=== PATIENT | male | born 1985 | race Caucasian/White ===

== ENCOUNTER 2019-07-27 11:39 | Emergency (ER) | payer BC, OTHER ==
--- NOTE | 2019-07-27 12:08 | ER Document Report ---
ED Medical Screen (RME) - General Chief Complaint: Chest Pain Stated Complaint: CHEST PAIN/SHORTNESS OF BREATH/HEADACHE/ARM ARI Time Seen by Provider: 07/27/19 12:04 Primary Care Provider: MARTHA SCHULTZ MD [Primary Care Provider] - Follow up as needed Notes: Patient is a 33-year-old male presents to the emergency department with a chief complaint of chest pain. Also has complaints of shortness of breath. His pain is radiating down his left arm. S chest pain started 6 days ago. Patient is an everyday smoker. He also states that he has a headache. He states that his blood pressure has been high. Exam: S1, S2. I have greeted and performed a rapid initial assessment of this patient. A comprehensive ED assessment and evaluation of the patient, analysis of test results and completion of medical decision making process will be conducted by an additional ED providers. TRAVEL OUTSIDE OF THE [place] IN LAST 30 DAYS: No - Related Data Allergies/Adverse Reactions: Sulfa (Sulfonamide Antibiotics) Allergy (Intermediate, Verified 07/27/19 12:04) throat itching Past Medical History - Social History Chew tobacco use (# tins/day): No Frequency of alcohol use: Rare Drug Abuse: None Doctor's Discharge - Discharge Referrals: MARTHA SCHULTZ MD [Primary Care Provider] - Follow up as needed
[2019-07-27 12:44] LABS: ABSOLUTE BASOPHILS # (AUTO) 0.1 10^3/uL (0.0-0.2); ABSOLUTE EOSINOPHILS # (AUTO) 0.3 10^3/uL (0.0-0.6); ABSOLUTE MONOCYTES (AUTO) 0.8 10^3/uL (0.1-1.4); ABSOLUTE NEUT (AUTO) 6.7 10^3/uL (1.7-8.2); BASOPHILS % (AUTO) 0.9 % (0-2); EOSINOPHILS % (AUTO) 3.1 % (0-6); HEMATOCRIT 47.3 % (37.9-51.0); HEMOGLOBIN 16.6 g/dL (13.5-17.0); LYMPHOCYTES % (AUTO) 27.6 % (13-45); MEAN CORPUSCULAR HEMOGLOBIN 31.1 pg (27.0-33.4); MEAN CORPUSCULAR HGB CONC 35.1 g/dL (32.0-36.0); MEAN CORPUSCULAR VOLUME 89 fl (80-97); PLATELET COUNT 187 10^3/uL (150-450); RED BLOOD COUNT 5.35 10^6/uL (4.35-5.55); RED CELL DISTRIBUTION WIDTH 12.9 % (11.5-14.0); SEGMENTED NEUTROPHILS % (AUTO) 61.4 % (42-78); TOTAL CELLS COUNTED % (AUTO) 100 %; WHITE BLOOD COUNT 10.8 10^3/uL (4.0-10.5)
--- NOTE | 2019-07-27 12:58 | RADIOLOGY REPORT (SQ) ---
EXAM DESCRIPTION: CHEST SINGLE VIEW COMPLETED DATE/TIME: 07/27/2019 12:50 pm REASON FOR STUDY: chest pain COMPARISON: None. EXAM PARAMETERS: NUMBER OF VIEWS: One view. TECHNIQUE: Single frontal radiographic view of the chest acquired. RADIATION DOSE: NA LIMITATIONS: None. FINDINGS: LUNGS AND PLEURA: No opacities, masses or pneumothorax. No pleural effusion. MEDIASTINUM AND HILAR STRUCTURES: No masses. Contour normal. HEART AND VASCULAR STRUCTURES: Heart normal in size. Normal vasculature. BONES: No acute findings. HARDWARE: None in the chest. OTHER: No other significant finding. IMPRESSION: NO ACUTE RADIOGRAPHIC FINDING IN THE CHEST. TECHNICAL DOCUMENTATION: JOB ID: [id number] [employer]- All Rights Reserved Reading location - IP/workstation name: [email or web address]
[2019-07-27 13:10] LABS: ALBUMIN 4.5 g/dL (3.5-5.0); ALKALINE PHOSPHATASE 61 U/L (38-126); ANION GAP 10 (5-19); ASPARTATE AMINO TRANSFERASE 32 U/L (17-59); BILIRUBIN,DIRECT 0.1 mg/dL (0.0-0.4); BILIRUBIN,TOTAL 0.8 mg/dL (0.2-1.3); BLOOD UREA NITROGEN 11 mg/dL (7-20); CALCIUM 9.4 mg/dL (8.4-10.2); CARBON DIOXIDE 27 mmol/L (22-30); CHLORIDE 105 mmol/L (98-107); CREATINE KINASE 130 U/L (55-170); GLUCOSE 116 mg/dL (75-110); TOTAL PROTEIN 8.3 g/dL (6.3-8.2)
[2019-07-27 13:20] LABS: TROPONIN I < 0.012 ng/mL
--- NOTE | 2019-07-27 15:45 | ER Document Report ---
ED General - General Chief Complaint: Chest Pain Stated Complaint: CHEST PAIN/SHORTNESS OF BREATH/HEADACHE/ARM ARI Time Seen by Provider: 07/27/19 12:04 Primary Care Provider: MARTHA SCHULTZ MD [COMMUNITY BASED STAFF] - Follow up as needed TRAVEL OUTSIDE OF THE [place] IN LAST 30 DAYS: No - HPI Notes: Patient is a 33-year-old male who presents emergency department for evaluation of chest pain. Substernal, with occasional radiation into the left shoulder, back, left arm. He states sometimes his left hand goes numb. It is never brought about by exertion. It is always brought about by stress. Patient has a history of PTSD, depression, anxiety. He will not tell me exactly what it is that is been stressful to him lately, but he alludes to something going on more acutely. He denies any suicidal or homicidal ideation. No visual or auditory hallucinations. He denies any associated shortness of breath, nausea, diaphoresis, near syncope. - Related Data Allergies/Adverse Reactions: Sulfa (Sulfonamide Antibiotics) Allergy (Intermediate, Verified 07/27/19 12:04) throat itching Past Medical History - General Information source: Patient - Social History Smoking Status: Current Every Day Smoker Chew tobacco use (# tins/day): No Frequency of alcohol use: Rare Drug Abuse: None Family History: CAD Patient has suicidal ideation: No Patient has homicidal ideation: No - Medical History Notes: G6PD deficiency Musculoskeletal Medical History: Reports Hx Musculoskeletal Trauma Psychiatric Medical History: Reports: Hx Depression, Hx Post Traumatic Stress Disorder Review of Systems - Review of Systems Constitutional: No symptoms reported EENT: No symptoms reported Cardiovascular: See HPI Respiratory: No symptoms reported Gastrointestinal: No symptoms reported Genitourinary: No symptoms reported Musculoskeletal: No symptoms reported Skin: No symptoms reported Neurological/Psychological: No symptoms reported Physical Exam - Vital signs Vitals: Pulse Ox 99 07/27/19 12:10 - Notes Notes: This is a very pleasant 33-year-old male who appears his stated age. He is anxious in appearance, cooperative with examiner. Vital signs reviewed, please refer to chart. Head is normocephalic, atraumatic. Pupils equal round, reactive to light. Neck is supple without meningismus. Heart is regular rate and rhythm. Lungs are clear to auscultation bilaterally. Abdomen is soft, nontender, normoactive bowel sounds throughout. Extremities without cyanosis, clubbing. Posterior calves are nontender. Peripheral pulses are equal. Skin is warm and dry. Patient is awake, alert, neurological exam is nonfocal. Course - Re-evaluation Re-evalutation: 07/27/19 15:42 Presents emergency department for evaluation. He is complaining of chest pain. He is told that he should quit smoking. He is encouraged strongly to follow-up with his primary care provider at the [facility], make sure he is addressing all of his risk factors for coronary artery disease. Today, he describes pain that is brought about by stress. It is not back about by exertion. His pain is been ongoing intermittently for 6 weeks, sometimes hours at a time. He states that this point it had been continuous for nearly a day. Given this information, he has effectively ruled out for acute coronary syndrome. I explained to him this is likely anxiety, will then send him home with some Vistaril. I strongly encouraged him to talk to primary care, discussed the possibility of Cymbalta. This medication is indicated for chronic pain, for which he has from his traumas and TBI. It might also help him with his depression and anxiety. He is amenable to this plan. Otherwise, I encouraged him to go back to counseling, return to the ED with worsening or new concerning symptoms of any sort. - Vital Signs Vital signs: Temp Pulse Resp BP Pulse Ox 13 145/97 H 97 07/27/19 13:01 07/27/19 13:01 07/27/19 13:01 - Laboratory Result Diagrams: 07/27/19 12:18 07/27/19 12:18 Laboratory results interpreted by me: 07/27/19 07/27/19 12:18 12:18 WBC 10.8 H Glucose 116 H Total Protein 8.3 H - Diagnostic Test Radiology reviewed: Reports reviewed - EKG Interpretation by Me Additional EKG results interpreted by me: 07/27/19 15:48 Sinus mechanism with a rate of 78 bpm. Normal axis and intervals, no acute ST changes concerning for ischemia or infarction. Discharge - Discharge Clinical Impression: Stress, Anxiety Chest pain Qualifiers: Chest pain type: unspecified Qualified Code(s): R07.9 - Chest pain, unspecified Condition: Stable Disposition: HOME, SELF-CARE Instructions: Anxiety ([facility]), Chest Pain of Unclear Cause ([facility]) Additional Instructions: Try Vistaril as needed for severe anxiety. Please watch as this can be sedating. You might want to discuss medication with your primary care provider a medication such as Cymbalta. This medication may help you with your pain, de pression, and anxiety issues. You may want to return to counseling as well. Further testing may be required to evaluate your heart further, discussed this with your primary care physician 2. Return to the emergency department with worsening or new concerning symptoms of any sort. Prescriptions: Hydroxyzine Pamoate [Vistaril 25 mg Capsule] 25 mg PO BID #14 capsule Referrals: MARTHA SCHULTZ MD [COMMUNITY BASED STAFF] - Follow up as needed
[2019-07-27 16:06] VITALS: BP 140/86
== END 2019-07-27 16:06 | disposition home or self-care (01) ==
LOC: ER 11:39
DX: F43.9 Reaction to severe stress, unspecified (principal); F41.9 Anxiety disorder, unspecified; R07.9 Chest pain, unspecified; R06.02 Shortness of breath; R51 Headache; F17.200 Nicotine dependence, unspecified, uncomplicated; Z88.2 Allergy status to sulfonamides
CPT/HCPCS: 36415; 71045; 80053; 82550; 82553; 83735; 84484; 85025; 99285

== ENCOUNTER 2019-07-29 13:01 | Emergency (ER) | payer OTHER ==
--- NOTE | 2019-07-29 13:16 | ER Document Report ---
ED Medical Screen (RME) - General Chief Complaint: Chest Pain Stated Complaint: CHEST PAIN Time Seen by Provider: 07/29/19 13:11 Primary Care Provider: NGUYỄN MCFARLANE [Primary Care Provider] - Follow up as needed TRAVEL OUTSIDE OF THE [place] IN LAST 30 DAYS: No - HPI Notes: 07/29/19 13:14 Patient is a 33-year-old male no significant past medical history presents complaining of midsternal chest pain and left scapular pain that is been present for the past week and a half. Patient states that times movement will make his pain worse. He started developing more pain to his back over the past couple days. He was evaluated here 2 days ago and had an unremarkable work-up at that time. No recent illness or fever. Denies any prolonged immobilization, distance travel, recent surgery/trauma, personal cancer history, hormone use, or previous DVT/PE. Denies LAMONTE, fever, neck pain, URI, n/v/d, Abd pain, dysuria, or rash. I have treated and performed a rapid initial assessment of this patient. A comprehensive ED assessment and evaluation of the patient, analysis of test results and completion of medical decision making process will be conducted by additional ED providers. PHYSICAL EXAMINATION: GENERAL: Well-appearing, well-nourished and in no acute distress. A&Ox4. Answers questions appropriately. LUNGS: Breath sounds clear to auscultation bilaterally and equal. No wheezes rales or rhonchi. HEART: Regular rate and rhythm without murmurs, rubs, gallops. - Related Data Allergies/Adverse Reactions: Sulfa (Sulfonamide Antibiotics) Allergy (Intermediate, Verified 07/27/19 12:04) throat itching Past Medical History Musculoskeltal Medical History: Reports Hx Musculoskeletal Trauma Psychiatric Medical History: Reports: Hx Depression, Hx Post Traumatic Stress Disorder Doctor's Discharge - Discharge [facility]errals: [facility] [Primary [facility]] - Follow up as needed
--- NOTE | 2019-07-29 14:03 | RADIOLOGY REPORT (SQ) ---
EXAM DESCRIPTION: CHEST 2 VIEWS COMPLETED DATE/TIME: 07/29/2019 1:46 pm REASON FOR STUDY: CP COMPARISON: 07/27/2019 EXAM PARAMETERS: NUMBER OF VIEWS: two views TECHNIQUE: Digital Frontal and Lateral radiographic views of the chest acquired. RADIATION DOSE: NA LIMITATIONS: none FINDINGS: LUNGS AND PLEURA: No opacities, masses or pneumothorax. No pleural effusion. MEDIASTINUM AND HILAR STRUCTURES: No masses or contour abnormalities. HEART AND VASCULAR STRUCTURES: Heart normal size. No evidence for failure. BONES: No acute findings. HARDWARE: None in the chest. OTHER: No other significant finding. IMPRESSION: NO ACUTE RADIOGRAPHIC FINDING IN THE CHEST. TECHNICAL DOCUMENTATION: JOB ID: [id number] [employer]- All Rights Reserved Reading location - IP/workstation name: [email or web address]
[2019-07-29 14:04] LABS: ABSOLUTE BASOPHILS # (AUTO) 0.1 10^3/uL (0.0-0.2); ABSOLUTE EOSINOPHILS # (AUTO) 0.2 10^3/uL (0.0-0.6); ABSOLUTE LYMPHOCYTES (AUTO) 3.5 10^3/uL (0.5-4.7); ABSOLUTE MONOCYTES (AUTO) 0.6 10^3/uL (0.1-1.4); ABSOLUTE NEUT (AUTO) 6.2 10^3/uL (1.7-8.2); BASOPHILS % (AUTO) 0.7 % (0-2); EOSINOPHILS % (AUTO) 1.9 % (0-6); HEMATOCRIT 47.4 % (37.9-51.0); HEMOGLOBIN 16.6 g/dL (13.5-17.0); LYMPHOCYTES % (AUTO) 33.2 % (13-45); MEAN CORPUSCULAR HEMOGLOBIN 31.1 pg (27.0-33.4); MEAN CORPUSCULAR VOLUME 89 fl (80-97); MONOCYTES % (AUTO) 5.9 % (3-13); PLATELET COUNT 192 10^3/uL (150-450); RED BLOOD COUNT 5.32 10^6/uL (4.35-5.55); RED CELL DISTRIBUTION WIDTH 12.9 % (11.5-14.0); SEGMENTED NEUTROPHILS % (AUTO) 58.3 % (42-78); TOTAL CELLS COUNTED % (AUTO) 100 %; WHITE BLOOD COUNT 10.7 10^3/uL (4.0-10.5)
[2019-07-29 14:15] LABS: ALBUMIN 4.7 g/dL (3.5-5.0); ALKALINE PHOSPHATASE 66 U/L (38-126); ANION GAP 9 (5-19); ASPARTATE AMINO TRANSFERASE 30 U/L (17-59); BILIRUBIN,DIRECT 0.1 mg/dL (0.0-0.4); BILIRUBIN,TOTAL 0.6 mg/dL (0.2-1.3); BLOOD UREA NITROGEN 9 mg/dL (7-20); CALCIUM 9.8 mg/dL (8.4-10.2); CARBON DIOXIDE 27 mmol/L (22-30); CHLORIDE 105 mmol/L (98-107); GLUCOSE 103 mg/dL (75-110); POTASSIUM 4.2 mmol/L (3.6-5.0); TOTAL PROTEIN 8.6 g/dL (6.3-8.2)
[2019-07-29] MEDS ORDERED: MORPHINE SULFATE 10 MG/ML INJ IV ONE (14:33)
--- NOTE | 2019-07-29 14:36 | ER Document Report ---
ED General - General Chief Complaint: Chest Pain Stated Complaint: CHEST PAIN Time Seen by Provider: 07/29/19 13:11 Primary Care Provider: NGUYỄN MCFARLANE [NO LOCAL MD] - Follow up in 3-5 days Mode of Arrival: Ambulatory Information source: Patient Notes: Patient presents complaining of chest pain for the past 10 days that goes through to his shoulder blades. Patient states that he was reaching for his phone this morning and felt a pop in the upper back area. Patient states that occasionally he does feel faint. Patient complains of increased stress. Patient was seen here 2 days ago and diagnosed with anxiety. Patient has not gotten his prescription filled or started taking the medication he was prescribed. TRAVEL OUTSIDE OF THE [place] IN LAST 30 DAYS: No - HPI Onset: Other - 10 days Onset/Duration: Worse Quality of pain: Sharp Pain Level: 5 Associated symptoms: Chest pain. denies: Nonproductive cough, Productive cough, Nausea, Vomiting, Shortness of breath Exacerbated by: Movement Relieved by: Denies Similar symptoms previously: Yes Recently seen / treated by doctor: Yes - Related Data Allergies/Adverse Reactions: Sulfa (Sulfonamide Antibiotics) Allergy (Intermediate, Verified 07/27/19 12:04) throat itching Past Medical History - General Information source: Patient - Social History Smoking Status: Current Every Day Smoker Frequency of alcohol use: None Drug Abuse: None Occupation: Retail Lives with: Family Family History: CAD Patient has suicidal ideation: No Patient has homicidal ideation: No Musculoskeletal Medical History: Reports Hx Musculoskeletal Trauma Psychiatric Medical History: Reports: Hx Depression, Hx Post Traumatic Stress Disorder Traumatic Medical History: Reports: Hx Traumatic Brain Injury Past Surgical History: Reports: Hx Myringotomy, Hx Tonsillectomy Review of Systems - Review of Systems Constitutional: No symptoms reported. denies: Fever EENT: No symptoms reported Cardiovascular: Chest pain, Lightheaded Respiratory: Short of breath. denies: Cough Gastrointestinal: No symptoms reported. denies: Abdominal pain, Diarrhea, Vomiting Genitourinary: No symptoms reported. denies: Dysuria Male Genitourinary: No symptoms reported Musculoskeletal: Back pain Skin: No symptoms reported Hematologic/Lymphatic: No symptoms reported Neurological/Psychological: No symptoms reported Physical Exam - Vital signs Vitals: Resp 16 07/29/19 14:05 - General General appearance: Appears well, Alert, Anxious In distress: None - HEENT Head: Normocephalic, Atraumatic Eyes: Normal Conjunctiva: Normal Nasal: Normal Mouth/Lips: Normal Mucous membranes: Normal Neck: Normal, Supple. No: Lymphadenopathy, Meningismus - Respiratory Respiratory status: Tachypnea Chest status: Pain on movement Breath sounds: Normal Chest palpation: Tender - Cardiovascular Rhythm: Regular. No: Tachycardia Heart sounds: S1 appreciated, S2 appreciated Murmur: No - Abdominal Inspection: Obese Distension: No distension Bowel sounds: Normal Tenderness: Nontender Organomegaly: No organomegaly - Back Back: Tender - Upper thoracic left paraspinal tenderness, no step-off or deformity. No: Deformity/step-off, CVA tenderness - Extremities General upper extremity: Normal inspection, Nontender, Normal ROM General lower extremity: Normal inspection, Nontender, Normal ROM - Neurological Neuro grossly intact: Yes Cognition: Normal Orientation: AAOx4 Dusty Coma Scale Eye Opening: Spontaneous Dusty Coma Scale Verbal: Oriented Sanders Coma Scale Motor: Obeys Commands Dusty Coma Scale Total: 15 - Psychological Associated symptoms: Anxious - Skin Skin Temperature: Warm Skin Moisture: Dry Skin Color: Normal Course - Re-evaluation Re-evalutation: 07/29/19 16:06 Patient without any acute findings noted on diagnostic evaluation. Patient does admit to history of anxiety and depression. Patient with a heart score of 0 at this time. No concern for pneumonia, pneumothorax or dissection at this time. Mental health team recommends Effexor 37.5 mg daily as well as BuSpar 5 mg twice a day to help with his symptoms. 07/29/19 17:09 Patient called stating that due to his G6PD deficiency he was unable to take NSAIDs but can take Tylenol. Patient requesting different prescription. - Vital Signs Vital signs: Temp Pulse Resp BP Pulse Ox 98.0 F 26 H 150/107 H 96 07/29/19 16:24 07/29/19 16:00 07/29/19 16:24 07/29/19 16:24 - Laboratory Result Diagrams: 07/29/19 13:25 07/29/19 13:25 Laboratory results interpreted by me: 07/29/19 07/29/19 13:25 13:25 WBC 10.7 H Total Protein 8.6 H 07/29/19 16:06 Labs- Entire Visit 07/29/19 07/29/19 07/29/19 13:25 13:25 13:25 WBC 10.7 H RBC 5.32 Hgb 16.6 Hct 47.4 MCV 89 MCH 31.1 MCHC 35.0 RDW 12.9 Plt Count 192 Lymph % (Auto) 33.2 [place] % (Auto) 5.9 Eos % (Auto) 1.9 Baso % (Auto) 0.7 Absolute Neuts (auto) 6.2 Absolute Lymphs (auto) 3.5 Absolute Monos (auto) 0.6 Absolute Eos (auto) 0.2 Absolute Basos (auto) 0.1 Seg Neutrophils % 58.3 Sodium 141.3 Potassium 4.2 Chloride 105 Carbon Dioxide 27 Anion Gap 9 BUN 9 Creatinine 0.78 Est GFR ( Amer) > 60 Est GFR (MDRD) Non-Af > 60 Glucose 103 Calcium 9.8 Total Bilirubin 0.6 Direct Bilirubin 0.1 Neonat Total Bilirubin Not Reportable Neonat Direct Bilirubin Not Reportable Neonat Indirect Bili Not Reportable AST 30 ALT 45 Alkaline Phosphatase 66 Troponin I < 0.012 Total Protein 8.6 H Albumin 4.7 - Diagnostic Test Radiology reviewed: Reports reviewed - EKG Interpretation by [facility] EKG shows normal: Sinus rhythm Rate: Normal Rhythm: NSR Discharge - Discharge Clinical Impression: Anxiety, Stress, Upper back pain Chest pain Qualifiers: Chest pain type: unspecified Qualified Code(s): R07.9 - Chest pain, unspecified Condition: Stable Disposition: HOME, SELF-CARE Instructions: Anxiety ([facility]), Chest Pain of Unclear Cause ([facility]), Upper Back Strain ([facility]) Additional Instructions: Return immediately for any new or worsening symptoms Followup with your primary care provider, call tomorrow to make a followup appointment Your primary doctor can make referrals to pain management, physical therapy as well as spinal orthopedic doctors for further evaluation of your upper back pain. Prescriptions: Buspirone HCl [Buspar 5 mg Tablet] 1 tab PO BID #14 tab Venlafaxine HCl ER [Effexor Xr 37.5 mg Cap.sr] 37.5 mg PO DAILY #7 cap.sr.24h Lidocaine [Lidoderm 5% (700 mg) Transdermal Patch] 1 patch TP DAILY PRN #10 adh..patch PRN Reason: Hydrocodone/Acetaminophen [[place] 5-325 mg Tablet] 1 tab PO Q6 PRN #15 tablet PRN Reason: Forms: Return to Work Referrals: [facility] [NO LOCAL MD] - Follow up in 3-5 days
--- NOTE | 2019-07-29 15:31 | RADIOLOGY REPORT (SQ) ---
EXAM DESCRIPTION: CTA CHEST COMPLETED DATE/TIME: 07/29/2019 3:16 pm REASON FOR STUDY: cp, pain betw shoulder blades, sob COMPARISON: 07/29/2019 TECHNIQUE: CT scan of the chest performed using helical scanning technique with dynamic intravenous contrast injection. Images reviewed with lung, soft tissue and bone windows. Reconstructed coronal and sagittal MPR images reviewed. Additional 3 dimensional post-processing performed to develop Maximal Intensity Projection images (TX P). All images stored on PACS. All CT scanners at this facility use dose modulation, iterative reconstruction, and/or weight based d osing when appropriate to reduce radiation dose to as low as reasonably achievable (ALARA). [facility]: Dose Right [facility]: CareDose [facility]: Dose Right [facility]: Teradose 4D [facility]: [employer] CONTRAST TYPE AND DOSE: contrast/concentration: Isovue 350.00 mg/ml; Total Contrast Delivered: 72.0 ml; Total Saline Delivered: 80.0 ml Contrast bolus adequate for pulmonary arteries and aorta. RENAL FUNCTION: None required. The patient is less than 50 years old. RADIATION DOSE: CT Rad equipment meets quality standard of care and radiation dose reduction techniq ues were employed. CTDIvol: 26.4 - 32.6 mGy. DLP: 1180 mGy-cm. . LIMITATIONS: None. FINDINGS: LUNGS AND PLEURA: No masses, infiltrates, or pneumothorax. Trace scattered mosaic attenua tion, most conspicuous in the left lower lobe. No pleural effusions or pleural calcifications. Inci dentally noted azygos fissure. AORTA AND GREAT VESSELS: No aneurysm. Contrast bolus not optimized for the aorta. HEART: No pericardial effusion. No significant coronary artery calcifications. PULMONARY ARTERIES: No emboli visualized in the main pulmonary arteries or the segmental branches. HILAR AND MEDIASTINAL STRUCTURES: No identified masses or abnormal nodes. HARDWARE: None in the chest. UPPER ABDOMEN: No significant findings. Limited exam. THYROID AND OTHER SOFT TISSUES: No masses. No adenopathy. BONES: No acute or significant finding. 3D MIPS: Confirm above findings. OTHER: No other significant finding. IMPRESSION: No evidence of pulmonary embolus. Minimal scattered mosaic attenuation which can be seen with small airway disease. COMMENT: Quality ID # [id number]: Final reports with documentation of one or more dose reduction techniques (e.g., Automated exposure control, adjustment of the mA and/or kV according to patient size, use of iterative reconstruction technique) TECHNICAL DOCUMENTATION: JOB ID: [id number] [employer]- All Rights Reserved Reading location - IP/workstation name: [email or web address]
[2019-07-29] MEDS ORDERED: LIDOCAINE 5% (700 MG) TRANSDERMAL ADH..PATCH TP ONE (16:05)
[2019-07-29] MEDS ORDERED: BUSPIRONE HCL 10 MG TABLET PO ONE (16:10)
[2019-07-29] MEDS ORDERED: VENLAFAXINE HCL 37.5 MG CAP.SR.24H PO ONE (16:11)
[2019-07-29 16:31] VITALS: BP 150/107
--- NOTE | 2019-07-29 16:34 | PSYCHOLOGICAL NOTE ---
Psych Note - Psych Note Date seen by psych provider: 07/29/19 Psych Note: Reason For Consult: Consent Permissions: Patient is alert and orientated to person, place, time and circumstance. Mood is anxious with congruent affect. Patient denies suicidal and homicidal ideation. Delusions are absent and behaviors congruent with an intact reality based presentation ie organized and linear thought process. Eye contact is well-maintained. Conversational speech is within normal rate, tone and prosody. Intellectual abilities appear to be within the average range. Attention and concentration are good. Insight, judgment, impulse control are fair. Diagnosis: PTSD TBI Medication recommendations per [facility]'s contracted psychiatrist Dr. David VU are as follows Effexor 37.5mg daily Buspar 5mg twice daily Impression\plan:Patient is cleared from acute psychiatric services. Dr. Sanon was consulted to care management of this patient; attending physicians in agreement with recommendations and disposition.
--- NOTE | 2019-07-29 21:23 | EKG REPORT ---
SEVERITY:- NORMAL ECG - SINUS RHYTHM : Confirmed by: Eliezer Coe MD 29-Jul-2019 21:23:02
== END 2019-07-29 16:31 | disposition home or self-care (01) ==
LOC: ER 13:01
DX: F41.9 Anxiety disorder, unspecified (principal); F43.9 Reaction to severe stress, unspecified; M54.6 Pain in thoracic spine; R07.9 Chest pain, unspecified; F17.200 Nicotine dependence, unspecified, uncomplicated; Z88.2 Allergy status to sulfonamides; Z87.820 Personal history of traumatic brain injury
CPT/HCPCS: 93005; 99285; 96374; 36415; 85025; 80053; 84484; 71046; 71275; 93010; J3490; J2270

== ENCOUNTER 2019-12-16 15:53 | Emergency (ER) | payer OTHER ==
[2019-12-16] MEDS ORDERED: CLINDAMYCIN 900 MG/D5W RTU 900 MG/50 ML RTUPB IV ONE (16:43)
--- NOTE | 2019-12-16 16:45 | ER Document Report ---
ED Medical Screen (RME) - General Chief Complaint: Ear Pain Stated Complaint: EAR PAIN Time Seen by Provider: 12/16/19 16:35 Primary Care Provider: ANA CRISTINA FITZGERALD MD [Primary Care Provider] - Follow up as needed Notes: HPI: 34-year-old male referred from the [facility] clinic for evaluation of left ear infection. Patient states he has had chills at home no definitive fever. Developed increasing redness and swelling to the ear over the last 2 days. Believes that he did have a small cyst behind the ear that he might have squeezed 2 or 3 weeks ago. I have greeted and performed a rapid initial assessment of this patient. A comprehensive ED assessment and evaluation of the patient, analysis of test results and completion of the medical decision making process will be conducted by additional ED providers PHYSICAL EXAMINATION: GENERAL: Well-appearing, well-nourished and in no acute distress. HEAD: Atraumatic, normocephalic. EYES: sclera anicteric, conjunctiva are normal. ENT: Moist mucous membranes. Moderate edema to the left pinna with erythema extending across the entire pinna. There is some induration to the lower portion of the left pinna NECK: Normal range of motion LUNGS: Normal work of breathing, clear to auscultation HEART: 2+ radial pulses bilaterally, regular rate and rhythm ABD: limited by positioning for exam in triage. EXTREMITIES: no pitting or edema. No cyanosis. NEUROLOGICAL: No focal neurological deficits. Moves all extremities spontaneously and on command. PSYCH: Normal mood, normal affect. SKIN: Warm, Dry, normal turgor TRAVEL OUTSIDE OF THE [place] IN LAST 30 DAYS: No - Related Data Allergies/Adverse Reactions: Sulfa (Sulfonamide Antibiotics) Allergy (Intermediate, Verified 07/27/19 12:04) throat itching NSAIDS (Non-Steroidal Anti-Inflamma Allergy (Verified 12/16/19 16:34) Past Medical History - Social History Frequency of alcohol use: Social Drug Abuse: None Musculoskeltal Medical History: Reports Hx Musculoskeletal Trauma Psychiatric Medical History: Reports: Hx Depression, Hx Post Traumatic Stress Disorder Traumatic Medical History: Reports: Hx Traumatic Brain Injury Past Surgical History: Reports: Hx Myringotomy, Hx Tonsillectomy Physical Exam - Vital signs Vitals: Temp Pulse Resp BP Pulse Ox 97.9 F 88 20 155/101 H 96 12/16/19 16:08 12/16/19 16:08 12/16/19 16:08 12/16/19 16:08 12/16/19 16:08 Course - Vital Signs Vital signs: Temp Pulse Resp BP Pulse Ox 97.9 F 88 20 155/101 H 96 12/16/19 16:08 12/16/19 16:08 12/16/19 16:08 12/16/19 16:08 12/16/19 16:08 Doctor's Discharge - Discharge Referrals: ANA CRISTINA FITZGERALD MD [Primary Care Provider] - Follow up as needed
[2019-12-16 17:32] LABS: ABSOLUTE BASOPHILS # (AUTO) 0.1 10^3/uL (0.0-0.2); ABSOLUTE EOSINOPHILS # (AUTO) 0.5 10^3/uL (0.0-0.6); ABSOLUTE LYMPHOCYTES (AUTO) 4.2 10^3/uL (0.5-4.7); ABSOLUTE MONOCYTES (AUTO) 0.9 10^3/uL (0.1-1.4); ABSOLUTE NEUT (AUTO) 5.1 10^3/uL (1.7-8.2); BASOPHILS % (AUTO) 0.8 % (0-2); EOSINOPHILS % (AUTO) 4.9 % (0-6); HEMOGLOBIN 15.6 g/dL (13.5-17.0); LYMPHOCYTES % (AUTO) 39.3 % (13-45); MEAN CORPUSCULAR HEMOGLOBIN 31.9 pg (27.0-33.4); MEAN CORPUSCULAR HGB CONC 36.4 g/dL (32.0-36.0); MEAN CORPUSCULAR VOLUME 88 fl (80-97); MONOCYTES % (AUTO) 7.9 % (3-13); PLATELET COUNT 204 10^3/uL (150-450); RED BLOOD COUNT 4.89 10^6/uL (4.35-5.55); RED CELL DISTRIBUTION WIDTH 13.3 % (11.5-14.0); SEGMENTED NEUTROPHILS % (AUTO) 47.1 % (42-78); TOTAL CELLS COUNTED % (AUTO) 100 %; WHITE BLOOD COUNT 10.8 10^3/uL (4.0-10.5)
[2019-12-16 17:42] LABS: ALBUMIN 4.5 g/dL (3.5-5.0); ALKALINE PHOSPHATASE 74 U/L (38-126); ANION GAP 10 (5-19); ASPARTATE AMINO TRANSFERASE 31 U/L (17-59); BILIRUBIN,DIRECT 0.3 mg/dL (0.0-0.4); BILIRUBIN,TOTAL 0.5 mg/dL (0.2-1.3); BLOOD UREA NITROGEN 15 mg/dL (7-20); CALCIUM 9.2 mg/dL (8.4-10.2); CARBON DIOXIDE 30 mmol/L (22-30); CHLORIDE 99 mmol/L (98-107); GLUCOSE 108 mg/dL (75-110); POTASSIUM 4.1 mmol/L (3.6-5.0); TOTAL PROTEIN 8.1 g/dL (6.3-8.2)
[2019-12-16] MEDS ORDERED: LEVOFLOXACIN 750 MG/D5W RTU 750 MG/150 ML RTUPB IV ONE (19:48)
--- NOTE | 2019-12-16 20:22 | ER Document Report ---
ED General - General Chief Complaint: Ear Pain Stated Complaint: EAR PAIN Time Seen by Provider: 12/16/19 16:35 Primary Care Provider: ANA CRISTINA FITZGERALD MD [NO LOCAL MD] - Follow up as needed Mode of Arrival: Ambulatory Information source: Patient TRAVEL OUTSIDE OF THE [place].S. IN LAST 30 DAYS: No - HPI Onset: Yesterday Onset/Duration: Gradual Quality of pain: Burning, Throbbing Severity: Severe Associated symptoms: Chills, Fever - subjective, Nausea, Vomiting, Other - swelling of left ear, pain in left lateral neck Exacerbated by: Other - palpation of ear and neck Relieved by: Denies Similar symptoms previously: No Recently seen / treated by doctor: No Notes: 34 year old male with a history of G6PD Deficiency here for a painful, red, swollen left ear which started yesterday. The patient has some associated subjective fevers, chills, sweats, nausea, vomiting. The patient wears ear rings and he took his left ear ring out once this started. The patient says he is able to express some oily material from the back of his left ear with palpation. - Related Data Allergies/Adverse Reactions: Sulfa (Sulfonamide Antibiotics) Allergy (Intermediate, Verified 07/27/19 12:04) throat itching NSAIDS (Non-Steroidal Anti-Inflamma Allergy (Verified 12/16/19 16:34) Past Medical History - General Information source: Patient - Social History Smoking Status: Never Smoker Frequency of alcohol use: Social Drug Abuse: None Lives with: Alone Family History: CAD Patient has suicidal ideation: No Patient has homicidal ideation: No Musculoskeletal Medical History: Reports Hx Musculoskeletal Trauma Psychiatric Medical History: Reports: Hx Depression, Hx Post Traumatic Stress Disorder Traumatic Medical History: Reports: Hx Traumatic Brain Injury Past Surgical History: Reports: Hx Myringotomy, Hx Tonsillectomy Review of Systems - Review of Systems Constitutional: Chills, Fever EENT: Ear pain - with ear swelling Cardiovascular: No symptoms reported Respiratory: No symptoms reported Gastrointestinal: Nausea, Vomiting Genitourinary: No symptoms reported Male Genitourinary: No symptoms reported Musculoskeletal: No symptoms reported Skin: No symptoms reported Hematologic/Lymphatic: No symptoms reported Neurological/Psychological: No symptoms reported -: Yes All other systems reviewed and negative Physical Exam - Vital signs Vitals: Temp Pulse Resp BP Pulse Ox 97.9 F 88 20 155/101 H 96 12/16/19 16:08 12/16/19 16:08 12/16/19 16:08 12/16/19 16:08 12/16/19 16:08 - Notes Notes: GENERAL: Well-appearing, well-nourished and in no acute distress. HEAD: Atraumatic, normocephalic. EYES: Pupils equal round and reactive to light, extraocular movements intact, sclera anicteric, conjunctiva are normal. ENT: Left Ear is erythematous, warm, swollen, and tender to palpation. Bottom half of ear is involved (helix, anti helix, tragus) TMs normal, nares patent, oropharynx clear without exudates. Tender over mastoid area on palpation with mild erythema in this area. Moist mucous membranes. NECK: Normal range of motion, supple without lymphadenopathy or JVD. LUNGS: Breath sounds clear to auscultation bilaterally and equal. No wheezes rales or rhonchi. HEART: Regular rate and rhythm without murmurs, rubs or gallops. ABDOMEN: Soft, nontender, normoactive bowel sounds. No guarding, no rebound. No masses appreciated. EXTREMITIES: Normal range of motion, no pitting or edema. No clubbing or cyanosis. NEUROLOGICAL: Cranial nerves II through XII grossly intact. Normal speech, normal gait. PSYCH: Normal mood, normal affect. SKIN: Warm, Dry, normal turgor, no rashes or lesions noted. Course - Re-evaluation Re-evalutation: 12/16/19 21:53 The patient has a significant left ear infection with no drainable collections on exam or on CT. Dr. Scott of ENT was consulted and he recommends oral antibiotics, antibiotic drops, and topical antibiotic ointment. Patient DCed on Levaquin and Clindamycin PO, Ciprodex Drops, and Bactroban Ointment. Patient is going to follow up with Dr. Scott Thursday. - Vital Signs Vital signs: Temp Pulse Resp BP Pulse Ox 97.9 F 88 20 155/101 H 96 12/16/19 16:08 12/16/19 16:08 12/16/19 16:08 12/16/19 16:08 12/16/19 16:08 - Laboratory Result Diagrams: 12/16/19 17:06 12/16/19 17:06 Laboratory results interpreted by me: 12/16/19 17:06 WBC 10.8 H MCHC 36.4 H - Diagnostic Test Radiology reviewed: Image reviewed, Reports reviewed Discharge - Discharge Clinical Impression: Cellulitis of ear Qualifiers: Laterality: left Qualified Code(s): H60.12 - Cellulitis of left external ear Disposition: HOME, SELF-CARE Instructions: Cellulitis ([facility]), Otitis Externa ([facility]) Additional Instructions: Take oral antibiotics and antibiotic ear drops as prescribed. Use the antibiotic ointment as prescribed. Follow up with Dr. Scott of [facility] (ENT). Return to an ER if worse despite treatment. Prescriptions: Mupirocin [Bactroban 2% Ointment 22 gm] 1 applic TP TID #1 tube Ciprofloxacin HCl/Dexameth [Ciprodex Otic Suspension 7.5 ml Bottle] 4 drop OT BID #1 bottle Clindamycin HCl [Cleocin 150 mg Capsule] 450 mg PO TID 7 Days #63 capsule Levofloxacin [Levaquin 500 mg Tablet] 500 mg PO DAILY 10 Days #20 tablet Referrals: ANA CRISTINA FITZGERALD MD [NO LOCAL MD] - Follow up as needed AJIT SCOTT DO [ASSOCIATE] - Follow up as needed
[2019-12-16] MEDS ORDERED: MORPHINE SULFATE 10 MG/ML INJ IV ONE (20:23)
[2019-12-16] MEDS ORDERED: ONDANSETRON HCL INJ/PF 4 MG/2 ML SDV IV ONE (20:23)
--- NOTE | 2019-12-16 20:27 | RADIOLOGY REPORT (SQ) ---
EXAM DESCRIPTION: CT NECK WITH IV CONTRAST COMPLETED DATE/TME: 12/16/2019 16:42 CLINICAL HISTORY: 34 years, Male, eval left ear abscess/cellulitis COMPARISON: None. TECHNIQUE: Images stored on PACS. All CT scanners at this facility use dose modulation, iterative reconstruction, and/or weight based dosing when appropriate to reduce radiation dose to as low as reasonably achievable (ALARA). [facility]: Dose Right [facility]: CareDose [facility]: Dose Right [facility]: Teradose 4D [facility]: [employer] LIMITATIONS: None. FINDINGS: Examination is not adequate for evaluation of intracranial contents. Mild mucosal thickening within the right maxillary sinus. No free fluid. Mastoid air cells are clear. Middle ears appears well aerated. The nasopharynx oropharynx and hypopharynx are symmetric. Thyroid is homogeneous. Lung apices are grossly clear. No bulky adenopathy. Salivary glands are unremarkable. Thickening is identified of the left ear involving the pinna. No discrete drainable collection this distribution. No obvious otitis externa IMPRESSION: Inflammatory changes involving the left ear without discrete drainable collection TECHNICAL DOCUMENTATION: Quality ID # 436: Final reports with documentation of one or more dose reduction techniques (e.g., Automated exposure control, adjustment of the mA and/or kV according to patient size, use of iterative reconstruction technique) copyright 2011 [employer] [employer]- All Rights Reserved
[2019-12-16 22:04] VITALS: BP 143/77
== END 2019-12-16 22:13 | disposition home or self-care (01) ==
LOC: ER 15:53
DX: H60.12 Cellulitis of left external ear (principal); H92.02 Otalgia, left ear; R50.9 Fever, unspecified; R11.2 Nausea with vomiting, unspecified; Z88.2 Allergy status to sulfonamides
CPT/HCPCS: 99283; 96375; 96365; 96366; 96367; 36415; 87040; 85025; 80053; 70491; J3490; J2270; J2405; J1956

== ENCOUNTER 2020-03-17 22:40 | Emergency (ER) | payer OTHER ==
[2020-03-17 22:51] VITALS: BP 192/105
[2020-03-17 23:22] LABS: APPEARANCE,URINE CLEAR; BILIRUBIN,URINE NEGATIVE (NEGATIVE); COLOR,URINE YELLOW; GLUCOSE, URINE >=500 mg/dL (NEGATIVE); KETONES,URINE NEGATIVE (NEGATIVE); LEUKOCYTE ESTERASE,URINE NEGATIVE (NEGATIVE); NITRITE,URINE NEGATIVE (NEGATIVE); PROTEIN,URINE 100 mg/dL (NEGATIVE); URINE SPECIFIC GRAVITY 1.025; UROBILINOGEN,URINE NEGATIVE mg/dL (<2.0)
[2020-03-18] MEDS ORDERED: NORMAL SALINE 1000 ML 1,000 ML IV ONE (00:09)
[2020-03-18] MEDS ORDERED: ONDANSETRON HCL INJ/PF 4 MG/2 ML SDV IV ONE (00:09)
[2020-03-18] MEDS ORDERED: CYCLOBENZAPRINE HCL 10 MG TABLET PO ONE (00:10)
--- NOTE | 2020-03-18 00:17 | ER Document Report ---
Entered by JULIAN SIMS SCRIBE 03/17/20 2134 Acting as scribe for:EVE BANUELOS IV, MD ED General - General Chief Complaint: Psych Problem Stated Complaint: BACK PAIN,NAUSEA,VOMITING Time Seen by Provider: 03/17/20 23:44 Primary Care Provider: MAEVE,NGUYỄN [Primary Care Provider] - Follow up as needed Mode of Arrival: Ambulatory Information source: Patient Notes: This 34 year old male patient with a history of G6PD deficiency presents to the ED today with complaints of back pain and nausea/vomiting/diarrhea. Patients reports chronic back pain for the past x6 years that has been more severe today. Patient notes that the pain sometimes radiates down to the back of his left leg and that his leg "stops working sometimes." He states that the nausea/vomiting started x2-3 days ago and that he had diarrhea yesterday, but not today. He notes that his grandmother wanted him to be seen for psychiatric concerns due to "sweating a lot," which he contributes to the hot temperature in the house. Per ED nurse, the patient currently feels anxious at this time, stating that "it's only because I'm in the hospital." Denies suicidal or homicidal ideation. TRAVEL OUTSIDE OF THE [place].S[place] IN LAST 30 DAYS: No - Related Data Allergies/Adverse Reactions: Sulfa (Sulfonamide Antibiotics) Allergy (Intermediate, Verified 07/27/19 12:04) throat itching NSAIDS (Non-Steroidal Anti-Inflamma Allergy (Verified 12/16/19 16:34) Past Medical History - General Information source: Patient, [facility] Records - Social History Smoking Status: Current Every Day Smoker Cigarette use (# per day): Yes Chew tobacco use (# tins/day): No Smoking Education Provided: No Lives with: Family Family History: Reviewed & Not Pertinent, CAD Patient has suicidal ideation: No Patient has homicidal ideation: No Musculoskeletal Medical History: Reports Hx Musculoskeletal Trauma Psychiatric Medical History: Reports: Hx Depression, Hx Post Traumatic Stress Disorder Traumatic Medical History: Reports: Hx Traumatic Brain Injury Past Surgical History: Reports: Hx Myringotomy, Hx Tonsillectomy Review of Systems - Review of Systems Constitutional: No symptoms reported EENT: No symptoms reported Cardiovascular: No symptoms reported Respiratory: No symptoms reported Gastrointestinal: See HPI, Diarrhea, Nausea, Vomiting Genitourinary: No symptoms reported Male Genitourinary: No symptoms reported Musculoskeletal: See HPI, Back pain Skin: No symptoms reported Hematologic/Lymphatic: No symptoms reported Neurological/Psychological: See HPI, Anxiety. denies: Homicidal ideation, Suicidal ideation -: Yes All other systems reviewed and negative Physical Exam - Vital signs Vitals: Temp Pulse Resp BP Pulse Ox 98.8 F 113 H 14 192/105 H 97 03/17/20 22:49 03/17/20 22:49 03/17/20 22:49 03/17/20 22:49 03/17/20 22:49 - General General appearance: Alert, Anxious, Other - Talkative In distress: None - HEENT Head: Normocephalic, Atraumatic Eyes: Normal Pupils: PERRL - Respiratory Respiratory status: No respiratory distress Chest status: Nontender Breath sounds: Normal Chest palpation: Normal - Cardiovascular Rhythm: Regular Heart sounds: Normal auscultation Murmur: No Friction rub: No Gallop: None auscultated - Abdominal Inspection: Normal Distension: No distension Bowel sounds: Normal Tenderness: Nontender - Abdomen soft Organomegaly: No organomegaly - Back Back: Other - Patient localizes pain to his left lower back - Extremities General upper extremity: Normal inspection General lower extremity: Normal inspection - Neurological Neuro grossly intact: Yes Notes: No gait abnormalities or foot drop - Psychological Associated symptoms: Anxious, Restlessness - Skin Skin Temperature: Warm Skin Moisture: Dry Skin Color: Normal Course - Re-evaluation Re-evalutation: 03/18/20 01:07 This MD was notified by nursing that the patient was not willing to stay to complete his eating MSE. Patient was counseled about risk leaving AMA which include but are not limited to permanent disability, permanent loss of current quality of life, . Patient was encouraged to return to the emergency department anytime if he changed his mind and decide to seek further medical care. Patient was counseled about this emergency department policy on treatment of chronic pain with narcotics. 03/18/20 01:09 - Vital Signs Vital signs: Temp Pulse Resp BP Pulse Ox 98.8 F 113 H 14 192/105 H 97 03/17/20 22:57 03/17/20 22:49 03/17/20 22:49 03/17/20 22:49 03/17/20 22:49 - Laboratory Result Diagrams: 03/18/20 00:40 03/18/20 00:40 Laboratory results interpreted by me: 03/17/20 23:00 Urine Protein 100 H Urine Glucose (UA) >=500 H Discharge - Discharge Clinical Impression: Chronic back pain Qualifiers: Back pain location: low back pain Back pain laterality: unspecified Sciatica presence: unspecified whether sciatica present Qualified Code(s): M54.5 - Low back pain; G89.29 - Other chronic pain Nausea and vomiting Qualifiers: Vomiting type: unspecified Vomiting Intractability: unspecified Qualified Code(s): R11.2 - Nausea with vomiting, unspecified Disposition: AGAINST MEDICAL ADVICE [facility]: [facility] [Primary [facility]] - Follow up as needed I personally performed the services described in the documentation, reviewed and edited the documentation which was dictated to the scribe in my presence, and it accurately records my words and actions.
[2020-03-18 01:08] LABS: URINE AMPHETAMINES SCREEN NEGATIVE; URINE BARBITURATES SCREEN NEGATIVE; URINE BENZODIAZEPINES SCREEN NEGATIVE; URINE COCAINE SCREEN NEGATIVE; URINE MARIJUANA (THC) SCREEN NEGATIVE; URINE METHADONE SCREEN NEGATIVE; URINE PHENCYCLIDINE SCREEN NEGATIVE
[2020-03-18 01:13] LABS: ABSOLUTE BASOPHILS # (AUTO) 0.1 10^3/uL (0.0-0.2); ABSOLUTE EOSINOPHILS # (AUTO) 0.3 10^3/uL (0.0-0.6); ABSOLUTE LYMPHOCYTES (AUTO) 2.9 10^3/uL (0.5-4.7); ABSOLUTE MONOCYTES (AUTO) 1.5 10^3/uL (0.1-1.4); BASOPHILS % (AUTO) 0.5 % (0-2); EOSINOPHILS % (AUTO) 1.3 % (0-6); HEMATOCRIT 41.4 % (37.9-51.0); HEMOGLOBIN 14.8 g/dL (13.5-17.0); LYMPHOCYTES % (AUTO) 14.5 % (13-45); MEAN CORPUSCULAR HEMOGLOBIN 31.3 pg (27.0-33.4); MEAN CORPUSCULAR HGB CONC 35.7 g/dL (32.0-36.0); MEAN CORPUSCULAR VOLUME 88 fl (80-97); MONOCYTES % (AUTO) 7.5 % (3-13); PLATELET COUNT 205 10^3/uL (150-450); RED BLOOD COUNT 4.71 10^6/uL (4.35-5.55); RED CELL DISTRIBUTION WIDTH 12.5 % (11.5-14.0); SEGMENTED NEUTROPHILS % (AUTO) 76.2 % (42-78); TOTAL CELLS COUNTED % (AUTO) 100 %; WHITE BLOOD COUNT 19.7 10^3/uL (4.0-10.5)
[2020-03-18 01:18] LABS: ALBUMIN 4.6 g/dL (3.5-5.0); ALKALINE PHOSPHATASE 75 U/L (38-126); ANION GAP 8 (5-19); ASPARTATE AMINO TRANSFERASE 35 U/L (17-59); BILIRUBIN,TOTAL 0.6 mg/dL (0.2-1.3); BLOOD UREA NITROGEN 11 mg/dL (7-20); CALCIUM 9.3 mg/dL (8.4-10.2); CARBON DIOXIDE 32 mmol/L (22-30); CHLORIDE 94 mmol/L (98-107); GLUCOSE 333 mg/dL (75-110); POTASSIUM 4.6 mmol/L (3.6-5.0); TOTAL PROTEIN 8.1 g/dL (6.3-8.2)
== END 2020-03-18 00:59 | disposition left against medical advice (07) ==
LOC: ER 22:40
DX: G89.29 Other chronic pain (principal); M54.5 Low back pain; R11.2 Nausea with vomiting, unspecified; R19.7 Diarrhea, unspecified; F17.210 Nicotine dependence, cigarettes, uncomplicated; F41.9 Anxiety disorder, unspecified; Z88.2 Allergy status to sulfonamides; Z87.820 Personal history of traumatic brain injury
CPT/HCPCS: 99284; 96374; 36415; 83690; 85025; 80053; 81001; 80307; J2405

== ENCOUNTER 2020-03-18 09:32 | Emergency (ER) | payer OTHER ==
[2020-03-18] MEDS ORDERED: FENTANYL CITRATE INJ/PF 100 MCG/2 ML AMPUL IV ONE (09:44)
[2020-03-18] MEDS ORDERED: PROPOFOL 1,000 MG/100 ML INFUS..BTL IV PRN (09:45)
[2020-03-18] MEDS ORDERED: RINGERS SOLUTION,LACTATED 1,000 ML IV ONE ×2 (09:45→12:13)
--- NOTE | 2020-03-18 09:47 | ER Document Report ---
ED General - General Stated Complaint: UNRESPONSIVE Primary Care Provider: [facility] [Primary Care Provider] - Follow up as needed Notes: 34-year-old male presents with unresponsiveness. Last seen normal 2 AM found at 8 AM unresponsive. Snoring respirations delayed EMS treatment extrication secondary to dog in the home. Found sonorous with blood in his nose hypot ension. Given ketamine. Bagged. RSI. Hypotensive requiring fluids and repeated doses of Levophed. Required ketamine x2. To confirm with end-tidal. No other info available. TRAVEL OUTSIDE OF THE [place] IN LAST 30 DAYS: No - Related Data Allergies/Adverse Reactions: Sulfa (Sulfonamide Antibiotics) Allergy (Intermediate, Verified 07/27/19 12:04) throat itching NSAIDS (Non-Steroidal Anti-Inflamma Allergy (Verified 12/16/19 16:34) Past Medical History - General Cannot obtain history due to: Intubated - Social History Smoking Status: Unknown if Ever Smoked Family History: Reviewed & Not Pertinent, CAD Musculoskeletal Medical History: Reports Hx Musculoskeletal Trauma Psychiatric Medical History: Reports: Hx Depression, Hx Post Traumatic Stress Disorder Traumatic Medical History: Reports: Hx Traumatic Brain Injury Past Surgical History: Reports: Hx Myringotomy, Hx Tonsillectomy Review of Systems - Review of Systems Notes: REVIEW OF SYSTEMS Intubated PHYSICAL EXAMINATION General: Abated unresponsive Head: Atraumatic, normocephalic ENT: Mouth normal, oropharynx moist, no exudates or tonsillar enlargement Eyes: Conjunctiva normal, pupils equal, lids normal Neck: No JVD, supple, no guarding CVS: Normal rate, regular rhythm, no murmurs Resp: No resp distress, equal and normal breath sounds bilaterally GI: Obese and distended Ext: No deformities, no edema, normal range of motion in upper and lower ext Back: No CVA or midline TTP Skin: No rash, warm Lymphatic: No lymphadeopathy noted Neuro: Unresponsive, pupils are 4 mm and nonreactive bilaterally Physical Exam - Vital signs Vitals: Temp 95.4 F L 03/18/20 09:32 Course - Re-evaluation Re-evalutation: 03/18/20 10:49 Patient presents unresponsive intubated with multiple vital sign and likely metabolic abnormalities Differentials broad including overdose cardiac event, head bleed, DKA. 03/18/20 10:51 Patient continued on fluids and Levophed. Did not need further sedation has had been given ketamine prior to ED arrival. Neurologic status unknown secondary to not be able to get exam Chest x-ray: Tube highadvanced [address]:? Cerebral edema discussed with Cordell for this would be consistent with clinical picture Gaseous severe metabolic acidosis with anion gap and elevated blood sugar which could be DKA, lactic acidosis are both given his lactic is still about 9 We will continue to hydrate, will start insulin bolus and drip Added on CK. The patient's EKG does not show acute ischemia or arrhythmia his drug screen is pending. His urine has a few white cells in it although mostly blood, but given his instability and going to treat him for sepsis with Rocephin. I placed a call to [facility] at 10:50 AM to transfer him I will discuss with his mother His hyperkalemia is being treated with insulin, calcium and albuterol as well as bicarb 03/18/20 10:52 03/18/20 12:16 Patient is on insulin drip. Discussed with Dr. Cordero from [facility] who agrees with plan and accepts transfer. I ordered repeat labs depending on how long he is here we can follow this up. [facility]ital think will be flying him to [facility]. 03/18/20 12:32 Repeat potassium still elevated. Will give another dose of albuterol and bicarb. Troponin is doubled. Has received aspirin. Helicopter is here. - Vital Signs Vital signs: Temp Pulse Resp BP Pulse Ox 95.4 F L 21 H 126/75 H 92 03/18/20 09:32 03/18/20 12:15 03/18/20 12:15 03/18/20 12:15 - Laboratory Result Diagrams: 03/18/20 09:45 03/18/20 11:36 Laboratory results interpreted by me: 03/18/20 03/18/20 03/18/20 09:45 09:45 09:45 WBC 24.2 H Seg Neuts % (Manual) 88 H Lymphocytes % (Manual) 7 L Abs Neuts (Manual) 21.3 H PT 15.7 H VBG pH VBG pCO2 Sodium 134.7 L Potassium 6.8 H* D Chloride 93 L Carbon Dioxide 21 L D Anion Gap 21 H Creatinine 2.08 H Est GFR ( Amer) 45 L Est GFR (MDRD) Non-Af 37 L Glucose 522 H* POC Glucose Lactic Acid Calcium 8.1 L AST 363 H ALT 214 H Creatine Kinase CK-MB (CK-2) Urine Protein Urine Glucose (UA) Urine Blood 03/18/20 03/18/20 03/18/20 09:45 09:45 09:45 WBC Seg Neuts % (Manual) Lymphocytes % (Manual) Abs Neuts (Manual) PT VBG pH 7.02 L* VBG pCO2 82.0 H* Sodium Potassium Chloride Carbon Dioxide Anion Gap Creatinine Est GFR ( Amer) Est GFR (MDRD) Non-Af Glucose POC Glucose Lactic Acid 9.2 H Calcium AST ALT Creatine Kinase 1041 H CK-MB (CK-2) Urine Protein Urine Glucose (UA) Urine Blood 03/18/20 03/18/20 03/18/20 09:45 09:55 11:36 WBC Seg Neuts % (Manual) Lymphocytes % (Manual) Abs Neuts (Manual) PT VBG pH VBG pCO2 Sodium 134.7 L Potassium 6.4 H* Chloride 96 L Carbon Dioxide Anion Gap Creatinine 1.88 H Est GFR ( Amer) 51 L Est GFR (MDRD) Non-Af 42 L Glucose 464 H* POC Glucose Lactic Acid Calcium 8.1 L AST ALT Creatine Kinase CK-MB (CK-2) 17.20 H Urine Protein >=500 H Urine Glucose (UA) 150 H Urine Blood LARGE H 03/18/20 03/18/20 11:36 11:53 WBC Seg Neuts % (Manual) Lymphocytes % (Manual) Abs Neuts (Manual) PT VBG pH VBG pCO2 Sodium Potassium Chloride Carbon Dioxide Anion Gap Creatinine Est GFR ( Amer) Est GFR (MDRD) Non-Af Glucose POC Glucose 429 H* Lactic Acid 5.4 H Calcium AST ALT Creatine Kinase CK-MB (CK-2) Urine Protein Urine Glucose (UA) Urine Blood - Diagnostic Test Radiology reviewed: Image reviewed, Reports reviewed - EKG Interpretation by Me EKG shows normal: Sinus rhythm Rate: Normal Rhythm: NSR When compared to previous EKG there are: Previous EKG unavailable Critical Care Note - Critical Care Note Total time excluding time spent on procedures (mins): 72 Comments: The above patient is critically ill. Not including procedures, but including direct re-evaluations, speaking with patient and/or consultants, interpreting results, and documenting, I spent the total amount of minute listed listed above on critical care time Discharge - Discharge Clinical Impression: Cerebral edema due to anoxia Diabetic keto-acidosis Qualifiers: Diabetes mellitus type: other specified (including DEJA) Diabetes mellitus complication detail: with coma Qualified Code(s): E13.11 - Other specified diabetes mellitus with ketoacidosis with coma Condition: Critical Disposition: [facility]errals: [facility] [Primary Care Provider] - Follow up as needed
[2020-03-18 10:10] LABS: VENOUS BLOOD BASE EXCESS -12.1 mmol/L; VENOUS BLOOD HCO3 20.5 mmol/L (20-32)
[2020-03-18 10:11] LABS: VENOUS BLOOD PH 7.02 (7.30-7.42)
[2020-03-18 10:18] LABS: HEMATOCRIT 41.8 % (37.9-51.0); HEMOGLOBIN 13.9 g/dL (13.5-17.0); MEAN CORPUSCULAR HGB CONC 33.3 g/dL (32.0-36.0); PLATELET COUNT 192 10^3/uL (150-450); RED BLOOD COUNT 4.48 10^6/uL (4.35-5.55); WHITE BLOOD COUNT 24.2 10^3/uL (4.0-10.5)
[2020-03-18 10:21] LABS: INTERNATIONAL RATION (INR) 1.24; PROTHROMBIN TIME 15.7 SEC (11.4-15.4)
--- NOTE | 2020-03-18 10:21 | RADIOLOGY REPORT (SQ) ---
EXAM DESCRIPTION: CHEST SINGLE VIEW IMAGES COMPLETED DATE/TIME: 03/18/2020 10:11 am REASON FOR STUDY: bed 5 post intubation COMPARISON: CT angio chest 07/29/2019 Two-view chest 07/29/2019 EXAM PARAMETERS: NUMBER OF VIEWS: 2 films are submitted 03/18/2020, 0951 hours TECHNIQUE: Single frontal radiographic view of the chest acquired. RADIATION DOSE: NA LIMITATIONS: None. FINDINGS: LUNGS AND PLEURA: Bandlike atelectasis or fluid along the right minor fissure. Lungs are otherwise clear. No pleural effusion or pneumothorax. MEDIASTINUM AND HILAR STRUCTURES: No masses. Contour normal. HEART AND VASCULAR STRUCTURES: No cardiomegaly BONES: No acute findings. HARDWARE: Nasogastric tube tip and side port in the stomach. The 1st the 2 films demonstrates an end otracheal tube tip just above the thoracic inlet. The 2nd film demonstrates the endotracheal tube arriaza s been advanced, with the tip 5 cm above the bhavin. OTHER: No other significant finding. IMPRESSION: Endotracheal, nasogastric tubes in good positioning. Focal fluid or consolidation along the right minor fissure No pneumothorax or pleural effusion TECHNICAL DOCUMENTATION: JOB ID: [id number] 2010 [employer]- All Rights Reserved Reading location - IP/workstation name: [email or web address]
[2020-03-18 10:29] LABS: ALBUMIN 3.9 g/dL (3.5-5.0); ALKALINE PHOSPHATASE 100 U/L (38-126); ASPARTATE AMINO TRANSFERASE 363 U/L (17-59); BILIRUBIN,DIRECT 0.1 mg/dL (0.0-0.4); BILIRUBIN,TOTAL 0.7 mg/dL (0.2-1.3); BLOOD UREA NITROGEN 14 mg/dL (7-20); CALCIUM 8.1 mg/dL (8.4-10.2); CHLORIDE 93 mmol/L (98-107); TOTAL PROTEIN 6.9 g/dL (6.3-8.2)
[2020-03-18 10:36] LABS: GLUCOSE 522 mg/dL (75-110)
[2020-03-18 10:37] LABS: ANION GAP 21 (5-19); CARBON DIOXIDE 21 mmol/L (22-30); POTASSIUM 6.8 mmol/L (3.6-5.0)
[2020-03-18] MEDS ORDERED: INSULIN REG, HUMAN 100 UNIT/ML 3 ML VIAL (PYX) IV ONE (10:38)
[2020-03-18] MEDS ORDERED: SODIUM BICARBONATE 8.4% INJ 50 MEQ/50 ML DISP.SYRIN IV ONE (10:38)
[2020-03-18] MEDS ORDERED: ALBUTEROL SULFATE 0.083% NEB 2.5 MG/3 ML AMPUL NEB ONE (10:38)
[2020-03-18 10:39] LABS: MEAN CORPUSCULAR VOLUME 93 fl (80-97)
[2020-03-18 10:42] LABS: AMORPHOUS SEDIMENT,URINE TRACE /HPF; APPEARANCE,URINE CLOUDY; BILIRUBIN,URINE NEGATIVE (NEGATIVE); COLOR,URINE AMBER; GLUCOSE, URINE 150 mg/dL (NEGATIVE); KETONES,URINE NEGATIVE (NEGATIVE); PROTEIN,URINE >=500 mg/dL (NEGATIVE); URINE SPECIFIC GRAVITY 1.023; UROBILINOGEN,URINE NEGATIVE mg/dL (<2.0)
[2020-03-18] MEDS ORDERED: ASPIRIN 300 MG SUPP, RECTAL PR ONE (10:42)
[2020-03-18 10:44] LABS: ABSOLUTE LYMPHOCYTES# (MANUAL) 1.7 10^3/uL (0.5-4.7); ABSOLUTE MONOCYTES # (MANUAL) 1.2 10^3/uL (0.1-1.4); BASOPHILS % (MANUAL) 0 % (0-2); EOSINOPHILS % (MANUAL) 0 % (0-6); LYMPHOCYTES % (MANUAL) 7 % (13-45); MONOCYTES % (MANUAL) 5 % (3-13); SEGMENTED NEUTROPHILS % (MAN) 88 % (42-78); TOTAL CELLS COUNTED 100
[2020-03-18 10:45] LABS: PLATELET COMMENT ADEQUATE; TOXIC VACUOLATION PRESENT
[2020-03-18] MEDS ORDERED: DEXTROSE 50%-WATER 25 GM/50 ML DISP.SYRIN IV PRN ×2 (10:45)
[2020-03-18] MEDS ORDERED: NORMAL SALINE 100 ML with INSULIN REGULAR, HUMAN 100 UNIT IV PRN ×2 (10:45)
[2020-03-18] MEDS ORDERED: DEXTROSE 40% GEL 15 GM TUBE PO PRN ×2 (10:45)
[2020-03-18] MEDS ORDERED: GLUCAGON,HUMAN RECOMB 1 MG INJ IM PRN (10:45)
--- NOTE | 2020-03-18 10:46 | RADIOLOGY REPORT (SQ) ---
EXAM DESCRIPTION: CT HEAD WITHOUT IMAGES COMPLETED DATE/TIME: 03/18/2020 10:21 am REASON FOR STUDY: ams COMPARISON: None. TECHNIQUE: Axial images acquired through the brain without intravenous contrast. Images reviewed wi th bone, brain and subdural windows. Additional sagittal and coronal reconstructions were generated. Images stored on PACS. All CT scanners at this facility use dose modulation, iterative reconstruction, and/or weight based d osing when appropriate to reduce radiation dose to as low as reasonably achievable (ALARA). [facility]: Dose Right [facility]: CareDose [facility]: Dose Right [facility]: Teradose 4D [facility]: [employer] RADIATION DOSE: CT Rad equipment meets quality standard of care and radiation dose reduction techniq ues were employed. CTDIvol: 53.2 mGy. DLP: 1070 mGy-cm. mGy. LIMITATIONS: None. FINDINGS: VENTRICLES: Normal size and contour. CEREBRUM: No masses. No hemorrhage. No midline shift. No evidence for acute infarction. Normal gra y/white matter differentiation. No areas of low density in the white matter. CEREBELLUM: No masses. No hemorrhage. No alteration of density. No evidence for acute infarction. EXTRAAXIAL SPACES: Sulci and sylvian fissures are, question mild diffuse cerebral edema. Findings di scussed with Dr. Baeza ORBITS AND GLOBE: No intra- or extraconal masses. Normal contour of globe without masses. CALVARIUM: No fracture. PARANASAL SINUSES: Mucous membrane thickening left maxillary sinus SOFT TISSUES: No mass or hematoma. OTHER: Patient is intubated. Orotracheal tube is seen in the bottom edge of the field of view. The patient's nasogastric tube is coiled in the mouth before coursing down the oropharynx Chest films 101 4 hours 03/18/2020 showed the tip of the nasogastric tube in the stomach. IMPRESSION: Effacement of the sylvian fissures and sulci, question mild cerebral edema. No CT evidence of acute large territory ischemic change, acute intracranial hemorrhage, or midline sh ift EVIDENCE OF ACUTE STROKE: NO. COMMENT: Quality ID # 436: Final reports with documentation of one or more dose reduction techniques (e.g., Automated exposure control, adjustment of the mA and/or kV according to patient size, use of iterative reconstruction technique) TECHNICAL DOCUMENTATION: JOB ID: [id number] [employer]- All Rights Reserved Reading location - IP/workstation name: [email or web address]
[2020-03-18] MEDS ORDERED: CEFTRIAXONE 1 GM/D5W RTU 1 GM/50 ML RTUPB IV ONE (10:49)
[2020-03-18] MEDS ORDERED: CALCIUM GLUCONATE 1000 MG/10 ML INJ IV ONE (10:52)
[2020-03-18] MEDS ORDERED: INSULIN REG, HUMAN 100 UNIT/ML 3 ML VIAL (PYX) ONE (11:04)
[2020-03-18 11:17] LABS: URINE AMPHETAMINES SCREEN NEGATIVE; URINE BARBITURATES SCREEN NEGATIVE; URINE BENZODIAZEPINES SCREEN NEGATIVE; URINE COCAINE SCREEN NEGATIVE; URINE MARIJUANA (THC) SCREEN NEGATIVE; URINE METHADONE SCREEN NEGATIVE; URINE PHENCYCLIDINE SCREEN NEGATIVE
[2020-03-18 12:05] LABS: ANION GAP 14 (5-19); BLOOD UREA NITROGEN 16 mg/dL (7-20); CALCIUM 8.1 mg/dL (8.4-10.2); CARBON DIOXIDE 25 mmol/L (22-30); CHLORIDE 96 mmol/L (98-107)
[2020-03-18 12:14] LABS: GLUCOSE 464 mg/dL (75-110); POTASSIUM 6.4 mmol/L (3.6-5.0)
--- NOTE | 2020-03-18 12:28 | EKG REPORT ---
SEVERITY:- BORDERLINE ECG - SINUS TACHYCARDIA BORDERLINE T ABNORMALITIES, INFERIOR LEADS : Confirmed by: Eliezer Coe MD 18-Mar-2020 12:26:56
[2020-03-18 12:48] VITALS: BP 132/76
== END 2020-03-18 13:30 | disposition short-term general hospital (02) ==
LOC: ER 09:32
DX: E11.10 Type 2 diabetes mellitus with ketoacidosis without coma (principal); A41.9 Sepsis, unspecified organism; E87.5 Hyperkalemia; R09.02 Hypoxemia; G93.6 Cerebral edema; I95.9 Hypotension, unspecified; R14.0 Abdominal distension (gaseous); R31.9 Hematuria, unspecified; Z88.8 Allergy status to other drugs, medicaments and biological substances; Z88.2 Allergy status to sulfonamides; Z20.828 Contact with and (suspected) exposure to other viral communicable diseases
CPT/HCPCS: 93005; 94640; 99291; 96361; 51702; 96375; 96365; 96368; 36415; 87040; 82553; 82962; 82550; 83605; 85610; 87635; 87070; 81001; 84484; 80307; 82803; 71045; 70450; 94660; 93010; J3490 ×2; J0610; J1815; J7120; J0696; C9803